=== PATIENT | male | born 1985 ===

== ENCOUNTER 2017-10-14 15:34 | Emergency (ER) | payer SELFPAY ==
[2017-10-14 16:31] VITALS: BP 125/88
--- NOTE | 2017-10-14 17:24 | UC ---
Lower Extremity/Ankle HPI - HPI Summary HPI Summary: 32 now presents ED with complaints of left calf pain that began this morning while attempting to jog up a hill. Patient states his calf felt tight yesterday. [place] a popping sensation. States it is painful to bear weight and walk as well as against resistance. Has not taken any medication. Is able to bear weight. No past medical history. No other significant trauma or injury. No swelling or bruising. Is not in any pain at rest. - History of Current Complaint Chief Complaint: UCLowerExtremity Stated Complaint: LEFT CALF INJURY Time Seen by Provider: 10/14/17 16:34 Hx Obtained From: Patient Onset/Duration: Sudden Onset, Lasting Hours Severity Initially: Mild Severity Currently: Moderate Pain Intensity: 7 Pain Scale Used: 0-10 Numeric Aggravating Factor(s): Standing, Ambulation Alleviating Factor(s): Rest Able to Bear Weight: Yes - with pain Legs: 1 - pain - Allergies/Home Medications Allergies/Adverse Reactions: Allergies Allergy/AdvReac Type Severity Reaction Status Date / Time No Known Allergies Allergy Verified 10/14/17 16:31 Home Medications: Home Medications NK [No Home Medications Reported] 10/14/17 [History Confirmed 10/14/17] PMH/Surg Hx/FS Hx/Imm Hx - Surgical History Surgical History: Yes Surgery Procedure, Year, and Place: Left hand. abcess lower back - Social History Alcohol Use: None Substance Use Type: None Smoking Status (MU): Never Smoked Tobacco Review of Systems Constitutional: Negative Respiratory: Negative Cardiovascular: Negative Motor: Negative Neurovascular: Negative Musculoskeletal: Arthralgia, Calf Tenderness, Myalgia Neurological: Negative All Other Systems Reviewed And Are Negative: Yes Physical Exam Triage Information Reviewed: Yes Appearance: Well-Appearing, No Pain Distress, Well-Nourished Vital Signs: Initial Vital Signs Temp 98.3 F 10/14/17 16:28 Pulse 59 10/14/17 16:28 Resp 12 10/14/17 16:28 BP 125/88 10/14/17 16:28 Pulse Ox 99 10/14/17 16:28 Vital Signs Reviewed: Yes Eyes: Positive: Conjunctiva Clear ENT: Positive: Hearing grossly normal Neck: Positive: Supple, Nontender Respiratory: Positive: Chest non-tender, Lungs clear, Normal breath sounds, No respiratory distress, No accessory muscle use Cardiovascular: Positive: RRR, No Murmur, Pulses Normal - 2+, Brisk Capillary Refill Musculoskeletal: Positive: Strength Intact - painful with plantar flexion and bearing weight, ROM of toes, ROM Intact - painful, No Edema Neurological Exam: Normal Neurological: Positive: Alert, Muscle Tone Normal Skin Exam: Normal Lower Extremity Course/Dx - Course Course Of Treatment: appears to be suffering a calf strain/partial tear. RICE and jason wrap applied. take ibuprofen for pain and inflammation. apply warm compresses.normal vitals and normal physical exam otherwise. patient agrees and understnads plan. crutches to rest and avoid excessive phsyical activity until symptoms improve. gently stretch. any new or worsening signs or symptosm please seek medical attention. follow up with PCP. - Differential Dx/Diagnosis Differential Diagnosis/HQI/PQRI: Sprain, Strain, Tendonitis, Other - calf pain Provider Diagnoses: calf pain, muscle strain Discharge - Sign-Out/Discharge Documenting (check all that apply): Discharge - Discharge Plan Condition: Good Disposition: HOME Patient Education Materials: Muscle Strain (ED) Referrals: Non Staff,Doctor [Primary Care Provider] - Additional Instructions: Take ibuprofen for pain and inflammation for the next 3-5 days. Apply warm compresses and gently stretch calf. Use crutches to avoid use. Rest and avoid physical activity until symptoms improve. Any new or worsening symptoms please seek medical attention promptly. Follow up with PCP to ensure improvement within the next 3-5 days. - Billing Disposition and Condition Condition: GOOD Disposition: HOME
== END 2017-10-14 17:39 | disposition home or self-care (01) ==
LOC: UCCORT 15:34
DX: S86.812A Strain of other muscle(s) and tendon(s) at lower leg level, left leg, initial encounter (principal); X58.XXXA Exposure to other specified factors, initial encounter; Y93.02 Activity, running; Y92.828 Other wilderness area as the place of occurrence of the external cause
CPT/HCPCS: 99201; G0463